=== PATIENT | female | born 1935 | race Hispanic/Latino ===

== ENCOUNTER 2021-01-15 09:38 | Emergency (ER) | payer MEDICARE, OTHER ==
[~2021-01-15] VITALS: Ht 149.9 cm; Wt 74.8 kg
[~2021-01-15 09:38] MED LIST: AMLODIPINE BESY10 MG PO; ASPIRIN81 MG PO; ATENOLOL50 MG PO; GABAPENTIN300 MG PO; IBUPROFEN400 MG PO; LOVAZA1 GM PO; OMEPRAZOLE20 MG PO; PAROXETINE HCL20 MG PO; VITAMIN D32000 UNIT PO
[2021-01-15] MEDS ORDERED: VENTOLIN HFA18 GM INH (11:08)
[2021-01-15] MEDS ORDERED: CODEINE-GUAIFE120 ML PO (11:08)
[2021-01-15] MEDS ORDERED: PREDNISONE20 MG PO (11:08)
[2021-01-15] MEDS ORDERED: AZITHROMYCIN250 MG PO (11:10)
[2021-01-15 11:20] VITALS: BP 136/74
== END 2021-01-15 11:22 | disposition home or self-care (01) ==
LOC: FSED 10:15
DX: R05 Cough (principal); J40 Bronchitis, not specified as acute or chronic; I10 Essential (primary) hypertension
CPT/HCPCS: 71046; 83518; 87400; 99283